=== PATIENT | male | born 1965 | race Caucasian/White ===

== ENCOUNTER 2024-06-02 14:28 | Emergency (ER) | payer OTHER ==
[2024-06-02] MEDS ORDERED: IBUPROFEN 200 MG TAB PO ONE (15:03)
[2024-06-02] MEDS ORDERED: HYDROCODONE/APAP 5/325 MG TAB ONE (15:03)
--- NOTE | 2024-06-02 16:12 | RAD REPORT ---
EXAM:Knee Right 3 View HISTORY: Pain;Swelling COMPARISON: None IMPRESSION: Status post constrained right knee arthroplasty. No fractures identified. No malalignment . No significant knee effusion.
--- NOTE | 2024-06-02 16:17 | ER ---
Nurse's Notes [facility] Name: Aayush [place] Age: 58 yrs Sex: Male : 1965 Arrival Date: 06/02/2024 Time: 14:28 Bed 15 Private MD: Diagnosis: Pain in right knee Presentation: 06/02 14:43 Chief complaint: Patient states: toned out [facility]; EMS reports pt. was leaning ar6 against his RV and was able to bare weight to right knee; pt. reports right knee pain. Coronavirus screen: Client denies travel out of the [place] in the last 14 days. At this time, the client does not indicate any symptoms associated with coronavirus-19. Ebola Screen: Patient negative for fever greater than or equal to 101.5 degrees Fahrenheit, and additional compatible Ebola Virus Disease symptoms Patient denies exposure to infectious person. Patient denies travel to an Ebola-affected area in the 21 days before illness onset. No symptoms or risks identified at this time. Initial Sepsis Screen: Does the patient meet any 2 criteria? No. Patient's initial sepsis screen is negative. Does the patient have a suspected source of infection? No. Patient's initial sepsis screen is negative. Risk Assessment: Do you want to hurt yourself or someone else? Patient reports no desire to harm self or others. Onset of symptoms was June 02, 2024. 14:43 Method Of Arrival: EMS: [facility] ar6 14:43 Acuity: JAMES 3 ar6 Triage Assessment: 14:47 General: Appears in no apparent distress. uncomfortable, Behavior is calm, cooperative, ar6 appropriate for age. Pain: Complains of pain in right leg Pain currently is 6 out of 10 on a pain scale. EENT: Oral mucosa is moist. Neuro: Level of Consciousness is awake, alert, obeys commands, Oriented to person, place, time, situation. Cardiovascular: Capillary refill < 3 seconds. Respiratory: Airway is patent. GI: Abdomen is round non-distended. : No signs and/or symptoms were reported regarding the genitourinary system. Derm: Skin is intact, is healthy with good turgor, Skin is dry. Musculoskeletal: Swelling right knee. Historical: - Allergies: 14:47 metformin; ar6 - Immunization history:: Adult Immunizations up to date. - Infectious Disease History:: Denies. - Social history:: Smoking status: Patient denies any tobacco usage or history of. Screenin:57 [facility] ED Fall Risk Assessment (Adult) History of falling in the last 3 months, ar6 including since admission No falls in past 3 months (0 pts) Confusion or Disorientation No (0 pts) Intoxicated or Sedated No (0 pts) Impaired Gait Yes (1 pt) Mobility Assist Device Used No (0 pt) Altered Elimination No (0 pt) Score/Fall Risk Level 0 - 2 = Low Risk Oriented to surroundings, Maintained a safe environment, Educated pt \T\ family on fall prevention, incl call for assistance when getting out of bed, Hourly rounding (assess needs \T\ fall precautionary measures) done. Abuse screen: Denies threats or abuse. Denies injuries from another. Nutritional screening: No deficits noted. Tuberculosis screening: No symptoms or risk factors identified. Assessment: 14:57 General: Appears in no apparent distress. uncomfortable, Behavior is calm, cooperative, ar6 appropriate for age. Pain: Complains of pain in right leg Pain currently is 6 out of 10 on a pain scale. Neuro: Level of Consciousness is awake, alert, obeys commands, Oriented to person, place, time, situation. Cardiovascular: Capillary refill < 3 seconds. Respiratory: Airway is patent. GI: Abdomen is round non-distended. : No signs and/or symptoms were reported regarding the genitourinary system. EENT: Oral mucosa is moist. Derm: Skin is intact, is healthy with good turgor, Skin is dry, Skin is pink, warm \T\ dry. Musculoskeletal: Swelling right knee. Vital Signs: 14:43 BP 127 / 76; Pulse 82; Resp 18; Temp 97.3; Pulse Ox 98% on R/A; Weight 90.72 kg; Height ar6 5 ft. 8 in. ; Pain 6/10; 14:55 BP 129 / 71; Pulse 84; Resp 18; Temp 97.3; Pulse Ox 98% on R/A; Weight 90.72 kg; Height ar6 5 ft. 8 in. ; Pain 6/10; 15:28 BP 131 / 73; Pulse 74; Resp 18; Pulse Ox 99% on R/A; ar6 16:39 BP 126 / 77; Pulse 77; Resp 18; Pulse Ox 99% on R/A; ar6 14:55 Body Mass Index 30.41 (90.72 kg, 172.72 cm) ar6 14:43 Pain Scale: Adult ar6 14:55 Pain Scale: Adult ar6 ED Course: 14:38 Patient arrived in ED. db 14:38 Lashell Field, RN is Primary Nurse. ar6 14:42 Edgardo Olmos, [facility] 14:42 Van Bejarano MD is Attending Physician. dr5 14:47 Triage completed. ar6 14:55 Arm band placed on right wrist. ar6 14:57 No apparent distress. Awaiting for x-ray. ar6 14:57 Patient has correct armband on for positive identification. Bed in low position. Call ar6 light in reach. Side rails up X 1. Provided Education on: plan of care. Pulse ox on. NIBP on. Door closed. Visitors limited. Lights dimmed. Moved to private room. Warm blanket given. Head of bed elevated. 14:57 No provider procedures requiring assistance completed. ar6 15:47 Knee Right 3 View XRAY In Process Unspecified. EDMS 16:40 IV discontinued, intact, bleeding controlled, No redness/swelling at site. Pressure ar6 dressing applied. Administered Medications: 15:06 Drug: HYDROcodone-acetaminophen PO 5 mg-325 mg 1 tabs PO once Route: PO; ar6 16:10 Follow up: Response: No adverse reaction ar6 16:22 Follow up: Response: No adverse reaction ar6 15:06 Drug: Ibuprofen PO 600 mg PO once Route: PO; ar6 16:09 Follow up: Response: No adverse reaction ar6 16:22 Follow up: Response: No adverse reaction ar6 Medication: 14:57 VIS not applicable for this client. ar6 Outcome: 16:17 Discharge ordered by . dr5 16:40 Discharged to home via wheelchair, ar6 16:40 Condition: good 16:40 Discharge instructions given to patient, Instructed on discharge instructions, follow up and referral plans. 16:40 Patient left the ED. ar6 Signatures: Dispatcher [employer] EDMS Maria M Hinkle RN RN db Roberts, Amber, RN RN ar6 Edgardo Olmos FNP-C REAL ESTATE SPECIALIST-Cdr5
--- NOTE | 2024-06-02 16:17 | EDPHYS ---
Physician Documentation [facility] Name: Aayush [place] Age: 58 yrs Sex: Male : 1965 Arrival Date: 06/02/2024 Time: 14:28 Bed 15 Private MD: ED Physician Van Bejarano HPI: 06/02 15:51 This 58 yrs old Male presents to ER via EMS with complaints of right knee dr5 pain. 15:51 Pt reports continued right knee pain for the past month and a half that worsened over dr5 the past three days.. 16:39 PT denies trauma, hitting right knee. Pt states the pain was sudden.. dr5 Historical: - Allergies: 14:47 metformin; ar6 - Immunization history:: Adult Immunizations up to date. - Infectious Disease History:: Denies. - Social history:: Smoking status: Patient denies any tobacco usage or history of. ROS: 15:51 Constitutional: as per hpi dr5 Exam: 15:51 Constitutional: This is a well developed, well nourished patient who is awake, alert, dr5 and in no acute distress. Head/Face: Normocephalic, atraumatic. Eyes: Pupils equal round and reactive to light, extra-ocular motions intact. Lids and lashes normal. Conjunctiva and sclera are non-icteric and not injected. Cornea within normal limits. Periorbital areas with no swelling, redness, or edema. Neck: Trachea midline, no thyromegaly or masses palpated, and no cervical lymphadenopathy. Supple, full range of motion without nuchal rigidity, or vertebral point tenderness. No Meningismus. Chest/axilla: Normal chest wall appearance and motion. Nontender with no deformity. No lesions are appreciated. Cardiovascular: Regular rate and rhythm with a normal S1 and S2. Normal PMI, no JVD. No pulse deficits. Respiratory: Lungs have equal breath sounds bilaterally, clear to auscultation. No rales, rhonchi or wheezes noted. No increased work of breathing, no retractions or nasal flaring. Abdomen/GI: Soft, non-tender, non-distended Neuro: Awake and alert, GCS 15, oriented to person, place, time, and situation. Cranial nerves II-XII grossly intact. Motor strength 5/5 in all extremities. Sensory grossly intact. Cerebellar exam normal. Normal gait. 15:51 Musculoskeletal/extremity: Extremities: all appear grossly normal, with no appreciated pain with palpation, grossly normal except: noted in the right knee medial: pain, tenderness, ROM: full passive range of motion, in the right knee, Circulation is intact in all extremities. Pulses: are normal with no appreciated deficits, Perfusion: the patient is normally perfused throughout, pink, noted to have brisk capillary refill, Perfusion: the extremity is normally perfused throughout, the right knee Sensation intact. Vital Signs: 14:43 BP 127 / 76; Pulse 82; Resp 18; Temp 97.3; Pulse Ox 98% on R/A; Weight 90.72 kg; Height ar6 5 ft. 8 in. ; Pain 6/10; 14:55 BP 129 / 71; Pulse 84; Resp 18; Temp 97.3; Pulse Ox 98% on R/A; Weight 90.72 kg; Height ar6 5 ft. 8 in. ; Pain 6/10; 15:28 BP 131 / 73; Pulse 74; Resp 18; Pulse Ox 99% on R/A; ar6 16:39 BP 126 / 77; Pulse 77; Resp 18; Pulse Ox 99% on R/A; ar6 14:55 Body Mass Index 30.41 (90.72 kg, 172.72 cm) ar6 14:43 Pain Scale: Adult ar6 14:55 Pain Scale: Adult ar6 Procedures: 16:36 Splinting: Splint applied to right knee using jhonny wrap, applied by nurse. Examined by dr5 me, post splint application: neurovascular intact, 2+ distal pulses palpable, brisk capillary refill noted, Patient tolerated well. MDM: 14:43 Patient medically screened. dr5 16:35 Differential Diagnosis Fracture, Strain, Sprain. Data reviewed: vital signs, nurses dr5 notes. Consideration of Admission/Observation Escalation of care including admission/observation considered. Considered admission if patient had septic joint or osteomyelitis.. I considered the following discharge prescriptions or medication management in the emergency department Antibiotics: At this time antibiotics are not recommended, Medications were administered in the Emergency Department. See MAR. 16:36 Care significantly affected by the following Social Determinants of Health: Poor access dr5 to healthcare and/or lack of insurance, Poor access to transportation. Counseling: I had a detailed discussion with the patient and/or guardian regarding the historical points, exam findings, and any diagnostic results supporting the discharge/admit diagnosis, the presence of at least one elevated blood pressure reading (>120/80) during this emergency department visit, radiology results, the need for outpatient follow up, for definitive care, a family practitioner, a orthopedic surgeon. Medication response: ibuprofen administration has resolved the patient's pain, [place]. Response to treatment: the patient's symptoms have resolved after treatment. ED course: Jhonny wrap applied to right knee for comfort. Recommended RICE. X-ray report didn't reveal a fracture. I printed out x-ray report for patient to take to his PCP for further management as indicated.. 06/02 14:59 Order name: Knee Right 3 View XRAY; Complete Time: 16:15 dr5 Administered Medications: 15:06 Drug: HYDROcodone-acetaminophen PO 5 mg-325 mg 1 tabs PO once Route: PO; ar6 16:10 Follow up: Response: No adverse reaction ar6 16:22 Follow up: Response: No adverse reaction ar6 15:06 Drug: Ibuprofen PO 600 mg PO once Route: PO; ar6 16:09 Follow up: Response: No adverse reaction ar6 16:22 Follow up: Response: No adverse reaction ar6 Disposition: 16:54 Co-signature as Attending Physician, Van Bejarano MD I reviewed the patient's care rt provided by the Advanced Practice Provider and agree with the diagnosis and treatment plan. Disposition Summary: 06/02/24 16:17 Discharge Ordered Notes: Location: Home dr5 Condition: Stable dr5 Diagnosis - Pain in right knee dr5 Followup: dr5 - With: Emergency Department - When: As needed - Reason: Worsening of condition Followup: dr5 - With: Private Physician - When: 2 - 3 days - Reason: Recheck today's complaints, Continuance of care, Re-evaluation by your physician Discharge Instructions: - Discharge Summary Sheet dr5 - Acute Knee Pain, Adult dr5 Forms: - Medication Reconciliation Form dr5 - Patient Portal Instructions dr5 - Leadership Thank You Letter dr5 Signatures: Dispatcher [employer] Van Qiu MD MD rt Lashell Field RN RN ar6 Edgardo Olmos, CERTIFIED WELLNESS PROGRAM COORDINATOR-C CERTIFIED WELLNESS PROGRAM COORDINATOR-Cdr5
[2024-06-02 16:50] VITALS: TEMP 97.3
[2024-06-02 16:57] VITALS: O2SAT 99
[2024-06-02 16:58] VITALS: BP 126/77
== END 2024-06-02 16:40 | disposition home or self-care (01) ==
LOC: ER 14:28
DX: M25.561 Pain in right knee (principal)
CPT/HCPCS: 99284

== ENCOUNTER 2024-11-06 20:55 | Emergency (ER) | payer OTHER ==
[2024-11-06 21:44] LABS: Absolute Basophils 0.1 K/uL (0-0.5); Absolute Eosinophils 0.1 K/uL (0-0.5); Absolute Lymphocytes (CBC) 1.9 K/uL (0.7-4.9); Absolute Monocytes 0.4 K/uL (0.1-1.3); Absolute Neutrophil 4.8 K/uL (1.8-8.0); Basophils % 1.1 % (0-1.3); Eosinophils % 1.7 % (0-4.4); Hematocrit 51.7 % (39.6-49.0); Hemoglobin 17.3 g/dL (13.6-17.9); Lymphocytes % 25.7 % (15.3-44.8); MCHC 33.4 g/dL (32.0-36.0); MCV 92.7 fL (80-100); MPV 8.1 fL (7.6-11.3); Neutrophils % 65.5 % (41.7-73.7); Nucleated Red Blood Cells % 0.1 % (0-0); Platelets 246 thou/uL (152-406); RBC Red Blood Cell Count 5.58 M/uL (4.33-5.43)
[2024-11-06 21:48] LABS: Specific Gravity 1.014 (1.005-1.030); Urine Bilirubin NEGATIVE (Negative); Urine Blood Negative (Negative); Urine Clarity Clear (Clear); Urine Color Colorless (Yellow); Urine Glucose 4+ (Over) (Negative); Urine Ketones NEGATIVE (Negative); Urine Microscopic Reflex YN NO UMIC; Urine Nitrite NEGATIVE (Negative); Urine Protein NEGATIVE (Negative); Urine Urobilinogen Normal (Normal)
[2024-11-06 21:55] LABS: Barbiturates NEGATIVE (NEGATIVE); Benzodiazepines NEGATIVE (NEGATIVE); Cocaine NEGATIVE (NEGATIVE); METHAMPHETAM NEGATIVE (NEGATIVE); Methadone NEGATIVE (NEGATIVE); Opiates NEGATIVE (NEGATIVE); Phencyclidine NEGATIVE (NEGATIVE); THC Cannibis NEGATIVE (NEGATIVE)
[2024-11-06 22:00] LABS: PTT, Activated Partial Thromb 31.5 SECONDS (27.2-37.4); Protime INR 0.87
[2024-11-06 22:05] LABS: ALT/SGPT 127 U/L (16-61); AST/SGOT 83 U/L (15-37); Albumin 3.8 g/dL (3.4-5.0); Alkaline Phosphatase 96 U/L (45-117); Anion Gap 10.9 mEq/L (5.0-15.0); BUN Blood Urea Nitrogen 8 mg/dL (7-18); Bicarbonate 21 mEq/L (21-32); Bilirubin Total 0.4 mg/dL (0.2-1.0); Glomerular Filtration Rate 106 ml/min (=/>90); Glucose Level 146 mg/dL (74-106); Potassium 3.9 mEq/L (3.5-5.1); Protein, Total 7.8 g/dL (6.4-8.2); Sodium Level 137 mEq/L (136-145)
[2024-11-06 22:14] LABS: Bilirubin Direct < 0.2 mg/dL (0-0.2); Bilirubin Indirect, Calculated 0.2 mg/dL (0.2-0.8)
--- NOTE | 2024-11-07 07:19 | ER ---
Nurse's Notes [facility] Name: Aayush Colorado Age: 58 yrs Sex: Male : 1965 Arrival Date: 11/06/2024 Time: 20:55 Bed 17 Private MD: Diagnosis: Alcohol abuse with intoxication;Worsening depressive disorder, suicidal ideation, homicidal ideation Presentation: 11/06 21:15 Chief complaint: EMS states: CALLED TO PATIENT'S HOME DUE TO PATIENT BEING HOMICIDAL. cm10 PT WAS ON THE PHONE AND STATED THAT HE WANTED TO KILL EVERYONE AND AND SHOT HIS PISTOL 3 TIMES. UPON ARRIVAL TO THE ER PATIENT DENYING SI/HI. PT STATES THAT HE DOES NOT KNOW WHY HE SHOT THE GUN EARLIER AND STATES, "I MUST HAVE BEEN HAVING AN EPISODE". WHEN ASKED IF HE WAS FEELING SUICIDAL PATIENT STATES, "WELL I SHOT MY GUN AND DON'T HAVE ANY GSW, SO NO." PT [facility] 21:15 Coronavirus screen: Client denies travel out of the [place] in the last 14 days. Ebola cm10 Screen: Patient denies travel to an Ebola-affected area in the 21 days before illness onset. Initial Sepsis Screen: Does the patient meet any 2 criteria? No. Patient's initial sepsis screen is negative. Does the patient have a suspected source of infection? No. Patient's initial sepsis screen is negative. Risk Assessment: Do you want to hurt yourself or someone else? Patient reports no desire to harm self or others. Onset of symptoms was November 06, 2024. 21:15 Acuity: JAMES 2 cm10 21:15 Method Of Arrival: EMS: [facility] cm10 Triage Assessment: 21:35 General: Appears in no apparent distress. comfortable, Behavior is calm, cooperative. cm10 Pain: Denies pain. Neuro: No deficits noted. Level of Consciousness is awake, alert, obeys commands, Oriented to person, place, time, situation, Appropriate for age. Respiratory: No deficits noted. Airway is patent Respiratory effort is even, unlabored, Respiratory pattern is regular, symmetrical. Historical: - Allergies: 21:11 metformin; cm10 - Home Meds: 21:30 Jardiance 25 mg oral tablet 1 tab daily [Active]; donepezil 10 mg oral tablet 1 tab cm10 every day at bedtime [Active]; duloxetine 30 mg oral capsule,delayed release (e.c.) 1 cap daily [Active]; lisinopril 20 mg Oral tablet 1 tab 2 times per day [Active]; atorvastatin 40 mg oral tablet 1 tab every evening [Active]; naproxen 250 mg Oral tablet 1 tab 2 times per day [Active]; baclofen 20 mg Oral tablet 1 tab 2 times per day [Active]; - PMHx: 21:11 Cerebrovascular accident; Left side defecits; PTSD; cm10 21:30 Hypertensive disorder; Hypercholesterolemia; Diabetes mellitus; cm10 - Immunization history:: Adult Immunizations unknown. - Infectious Disease History:: Denies. - Social history:: Smoking status: Patient denies any tobacco usage or history of. Patient uses alcohol, claims drinking about a 6 pack/day. - Family history:: not pertinent. Screenin:37 [facility] ED Fall Risk Assessment (Adult) History of falling in the last 3 months, cm10 including since admission No falls in past 3 months (0 pts) Confusion or Disorientation No (0 pts) Intoxicated or Sedated No (0 pts) Impaired Gait No (0 pts) Mobility Assist Device Used No (0 pt) Altered Elimination No (0 pt) Score/Fall Risk Level 0 - 2 = Low Risk Oriented to surroundings, Maintained a safe environment, Hourly rounding (assess needs \\T\\ fall precautionary measures) done. Abuse screen: Denies threats or abuse. Denies injuries from another. Nutritional screening: No deficits noted. Tuberculosis screening: No symptoms or risk factors identified. Assessment: 11/07 00:34 Reassessment: Patient appears in no apparent distress at this time. Patient and/or aa10 family updated on plan of care and expected duration. Pain level reassessed. Patient is alert, oriented x 3, equal unlabored respirations, skin warm/dry/pink. Patient is alert/active/playful, equal unlabored respirations, skin warm/dry/pink. Patient denies pain at this time. 00:34 Reassessment: sitter at bedside patient,environment ensured free and safe from hazard , aa10 bed in lowest position, will continue plan of care. 04:44 Reassessment: Patient appears in no apparent distress at this time. No changes from aa10 previously documented assessment. Patient and/or family updated on plan of care and expected duration. Pain level reassessed. Patient is alert, oriented x 3, equal unlabored respirations, skin warm/dry/pink. 06:34 Reassessment: Patient appears in no apparent distress at this time. No changes from aa10 previously documented assessment. Patient and/or family updated on plan of care and expected duration. Pain level reassessed. Patient is alert, oriented x 3, equal unlabored respirations, skin warm/dry/pink. Patient denies pain at this time. Patient states feeling better. 06:52 Reassessment: nurse to nurse report called to [facility], Nurse Debra. aa10 07:00 Reassessment: pt is awake, A\\T\\O x4, watching TV. pt denies SI or HI at this time. pt kc6 states that he vaguely remembers what happened last night and that "it was probably another one of my episodes. I haven't had one in over a year but they happen from time to time. I'm retired ex and did [place].". 08:00 Reassessment: Patient appears in no apparent distress at this time. No changes from kc6 previously documented assessment. Patient and/or family updated on plan of care and expected duration. Pain level reassessed. Patient is alert, oriented x 3, equal unlabored respirations, skin warm/dry/pink. 09:15 Reassessment: Patient appears in no apparent distress at this time. No changes from kc6 previously documented assessment. Patient and/or family updated on plan of care and expected duration. Pain level reassessed. Patient is alert, oriented x 3, equal unlabored respirations, skin warm/dry/pink. 10:15 Reassessment: Patient appears in no apparent distress at this time. No changes from kc6 previously documented assessment. Patient and/or family updated on plan of care and expected duration. Pain level reassessed. Patient is alert, oriented x 3, equal unlabored respirations, skin warm/dry/pink. Psych: 11/06 21:15 [place] Suicide Severity Screening: In the past month, have you wished you were cm10 or wished you could go to sleep and not wake up? Patient responds "No." "In the past month, have you actually had any thoughts of killing yourself?" Patient responds "no." "In your lifetime, have you ever done anything, started to do anything, or prepared to do anything to end your life?" Patient responds "no.". Subjective: Delusions are denied, Hallucinations are denied Having thoughts of homicide. PATIENT BROUGHT IN VIA LUCIA. PER LUCIA REPORT, PATIENT WAS STATING THAT HE WANTED TO SHOOT EVERYONE AND SHOT HIS PISTOL 3 TIMES. PATIENT CURRENTLY DENIES HI. 21:15 Objective: Patient is cooperative, Speech is normal, Affect is appropriate. cm10 Interventions: Removed personal items and placed in bag. Belonging list filled out. Safety Checks: Personal items have been removed. Door is open. No visitors are present at this time. Patient uses 6 pack of beer, daily. Commitment: Patient will be an involuntary commitment. Vital Signs: 21:38 Weight 91.85 kg; Height 5 ft. 8 in. ; cm10 21:49 BP 110 / 68; Pulse 72; Resp 18; Temp 97(O); Pulse Ox 93% on R/A; oe 03/ 07:00 BP 112 / 64; Pulse 75; Resp 18 S; Temp 98.3(TE); Pulse Ox 95% on R/A; Pain 0/10; kc6 10:15 BP 134 / 88; Pulse 88; Resp 18 S; Temp 98.2(TE); Pulse Ox 97% on R/A; Pain 0/10; kc6 0311 21:38 Body Mass Index 30.79 (91.85 kg, 172.72 cm) cm10 03/ 07:00 Pain Scale: Adult kc6 10:15 Pain Scale: Adult kc6 Marissa Coma Score: 07:15 Eye Response: spontaneous(4). Motor Response: obeys commands(6). Verbal Response: sp4 oriented(5). Total: 15. ED Course: 11/06 21:01 Patient arrived in ED. rv1 21:04 Julien Lynn MD is Attending Physician. sp4 21:07 Yasemin Vargas, SHELLY is Primary Nurse. cm10 21:13 Triage completed. cm10 21:34 Arm band placed on right wrist. Patient placed in an exam room, on a stretcher. cm10 21:37 Patient has correct armband on for positive identification. cm10 21:40 Inserted saline lock: 22 gauge in right forearm, using aseptic technique. Blood oe collected. Flushed with 10 mL NS. 21:51 EKG done, by ED staff, reviewed by Julien Lynn MD. oe 21:56 Acetaminophen Sent. oe 21:56 Basic Metabolic Panel Sent. oe 21:56 ETOH Level Sent. oe 21:56 Hepatic Function Sent. oe 21:57 PT-INR Sent. oe 21:57 Ptt, Activated Sent. oe 21:57 Salicylate Sent. oe 03 00:34 No provider procedures requiring assistance completed. aa10 06:30 Faxed pt clinicals to following facilities for placement; [address] 07:00 Safety Checks: Personal items have been removed. The door is open or patient has been kc6 placed in a hallway bed/chair. There are no family/friend visitors at this time Sitter present at this time. 07:00 Patient has correct armband on for positive identification. Bed in low position. Side kc6 rails up X2. Valuables inventory done. Locked in safe. See valuables checklist. Door closed. Noise minimized. Visitors limited. Lights dimmed. Moved to private room. Warm blanket given. Pillow given. Verbal reassurance given. Patient is placed in psych hold. 07:00 Report received from SHELLY Carnes. kc6 07:00 Patient maintains SpO2 saturation greater than 95% on room air. kc6 07:21 Assisted to bathroom. kc6 07:46 Attending Physician role handed off by Julien Lynn MD rn 07:46 Stephen Armstrong MD is Attending Physician. rn 09:15 Diet: Patient given a regular meal tray. Tolerated well. kc6 10:15 Provided Education on: need for transfer. kc6 10:15 IV discontinued, intact, bleeding controlled, No redness/swelling at site. Pressure kc6 dressing applied. Administered Medications: No medications were administered Medication: 11/06 21:37 VIS not applicable for this client. cm10 Outcome: 11/07 07:19 ER care complete, transfer ordered by . sp4 10:15 Transferred Transfer form completed. Note: [facility] 10:15 Condition: good 10:15 Instructed on the need for transfer, 10:26 Patient left the ED. kc6 Signatures: Stephen Armstrong MD MD rn Espinosa, [place] oe Campbell, Kaitlyn, RN RN kc6 Tessy Pantoja rv1 Julien Lynn MD MD sp4 Yasemin Vargas RN RN cm10 Flower Mcdonnell, SHELLY RN aa10 Corrections: (The following items were deleted from the chart) 11/06 21:27 21:13 Risk Assessment: Do you want to hurt yourself or someone else? Patient reports cm10 desire/thoughts of hurting themselves or someone else. Provider notified. cm10 21:13 Risk Assessment: Do you want to hurt yourself or someone else? Patient reports no cm10 desire to harm self or others. cm10 21:13 Acuity: JAMES 2 cm10 cm10 21:25 Chief complaint: EMS states: CALLED TO PATIENT'S HOME DUE TO PATIENT BEING cm10 HOMICIDAL. PT WAS ON THE PHONE AND STATED THAT HE WANTED TO KILL EVERYONE AND AND SHOT HIS PISTOL 3 TIMES. UPON ARRIVAL TO THE ER PATIENT DENYING SI/HI. PT STATES THAT HE DOES NOT KNOW WHY HE SHOT THE GUN EARLIER AND STATES, "I MUST HAVE BEEN HAVING AN EPISODE". WHEN ASKED IF HE WAS FEELING SUICIDAL PATIENT STATES, "WELL I SHOT MY GUN AND DON'T HAVE ANY GSW, SO NO." PT ARRIVED WITH AN LUCIA IN PLACE BY [facility]. 10 11/07 09:17 07:00 Reassessment: pt is awake, A\\T\\O x4, watching TV. [facility] 10:24 10:24 BP 134 / 88; Pulse 88bpm; Resp 18bpm; Spontaneous; Pulse Ox 97% RA; Temp 98.2F kc6 Temporal; Pain 0/10, Adult; 6 10: 10:24 Condition: good [place] [id number] 10: 10:24 Transferred Transfer form completed. Note: [place] [facility] [place] [facility] : 10:24 Instructed on the need for transfer, [place] [id number]
--- NOTE | 2024-11-07 07:19 | EDPHYS ---
Physician Documentation [facility] Name: Aayush Colorado Age: 58 yrs Sex: Male : 1965 Arrival Date: 11/06/2024 Time: 20:55 Bed 17 Private MD: ED Physician Stephen Armstrong HPI: 11/06 21:04 This 58 yrs old Male presents to ER via Unassigned with complaints of sp4 homicidal ideation . 11/07 07:15 This is 58-year-old male with history of CVA, PTSD, of [employer], history of sp4 hypertensive disorder, hypercholesterolemia and diabetes. Also history of dementia on donepezil. Patient presents with acute homicidal and suicidal ideation. Patient brought in with police escort with LUCIA. LUCIA states patient has threatened to shoot himself in the head. LUCIA also states patient has threatened to kill anybody who can come close to him. Patient is in possession of multiple firearms at home.. Historical: - Allergies: 11/06 21:11 metformin; cm10 - Home Meds: 21:30 Jardiance 25 mg oral tablet 1 tab daily [Active]; donepezil 10 mg oral tablet 1 tab cm10 every day at bedtime [Active]; duloxetine 30 mg oral capsule,delayed release (e.c.) 1 cap daily [Active]; lisinopril 20 mg Oral tablet 1 tab 2 times per day [Active]; atorvastatin 40 mg oral tablet 1 tab every evening [Active]; naproxen 250 mg Oral tablet 1 tab 2 times per day [Active]; baclofen 20 mg Oral tablet 1 tab 2 times per day [Active]; - PMHx: 21:11 Cerebrovascular accident; Left side defecits; PTSD; cm10 21:30 Hypertensive disorder; Hypercholesterolemia; Diabetes mellitus; cm10 - Immunization history:: Adult Immunizations unknown. - Infectious Disease History:: Denies. - Social history:: Smoking status: Patient denies any tobacco usage or history of. Patient uses alcohol, claims drinking about a 6 pack/day. - Family history:: not pertinent. ROS: 11/07 07:15 Constitutional: Negative for fever, chills, and weight loss, positive for suicidal sp4 and homicidal ideation, positive for anxiety and depression. All other systems are negative, Exam: 07:15 Constitutional: This is a well developed, well nourished patient who is awake, alert, sp4 and in no acute distress. Head/Face: Normocephalic, atraumatic. Eyes: Pupils equal round and reactive to light, extra-ocular motions intact. Lids and lashes normal. Conjunctiva and sclera are not injected. Cornea within normal limits. Periorbital areas with no swelling, redness, or edema. ENT: Nares patent. No nasal discharge, no septal abnormalities noted. Tympanic membranes are normal and external auditory canals are clear. Oropharynx with no redness, swelling, or masses, exudates, or evidence of obstruction, uvula midline. Mucous membranes moist. Neck: Trachea midline, no thyromegaly or masses palpated, and no cervical lymphadenopathy. Supple, full range of motion without nuchal rigidity, or vertebral point tenderness. Chest/axilla: Normal chest wall appearance and motion. Nontender with no deformity. No lesions are appreciated. Cardiovascular: Regular rate and rhythm with a normal S1 and S2. No gallops, murmurs, or rubs. Normal PMI, no JVD. No pulse deficits. Respiratory: Lungs have equal breath sounds bilaterally, clear to auscultation and percussion. No rales, rhonchi or wheezes noted. No increased work of breathing, no retractions or nasal flaring. Abdomen/GI: Soft, with normal bowel sounds. No distension or tympany. No guarding or rebound. No evidence of tenderness throughout. Back: No spinal tenderness. No costovertebral tenderness. Skin: Warm, dry with normal turgor. Normal color with no rashes, no lesions, and no evidence of cellulitis. MS/ Extremity: Pulses equal, no cyanosis. Neurovascular intact. Full, normal range of motion. Neuro: Awake and alert, GCS 15, oriented to person, place, time, and situation. Cranial nerves II-XII grossly intact. Motor strength 5/5 in all extremities. Sensory grossly intact. Psych: Awake, alert, with orientation to person, place and time. Behavior, mood, and affect are within normal limits 07:31 ECG was reviewed by the Attending Physician. EKG 2139 normal sinus rhythm rate 75. sp4 Vital Signs: 11/06 21:38 Weight 91.85 kg; Height 5 ft. 8 in. ; cm10 21:49 BP 110 / 68; Pulse 72; Resp 18; Temp 97(O); Pulse Ox 93% on R/A; oe 11/07 07:00 BP 112 / 64; Pulse 75; Resp 18 S; Temp 98.3(TE); Pulse Ox 95% on R/A; Pain 0/10; kc6 10:15 BP 134 / 88; Pulse 88; Resp 18 S; Temp 98.2(TE); Pulse Ox 97% on R/A; Pain 0/10; kc6 11/06 21:38 Body Mass Index 30.79 (91.85 kg, 172.72 cm) cm10 11/07 07:00 Pain Scale: Adult kc6 10:15 Pain Scale: Adult kc6 Rydal Coma Score: 07:15 Eye Response: spontaneous(4). Motor Response: obeys commands(6). Verbal Response: sp4 oriented(5). Total: 15. MDM: 11/06 21:05 Medical Screening Exam initiated sp4 11/07 07:17 Differential diagnosis: drug withdrawal. acute psychotic break, depression, psychosis sp4 secondary to non-compliance. Data reviewed: vital signs, nurses notes, EMS record, old medical records, lab test result(s), EKG. Consideration of Admission/Observation Escalation of care including admission/observation considered. Transition of care: After a detail discussion of the patient's case, care is transferred to Stephen Armstrong MD. ED course: Patient was informed that transfer is warranted for psychiatric assessment.. Patient is under LUCIA.. 07:46 ED course: Pt signed out to me by Dr. Lynn, pending psychiatric transfer for rn suicidal ideation. Vitals stable, no acute distress. . 09:52 ED course: Patient accepted for transfer to [facility]. rn 11/06 21:06 Order name: Acetaminophen; Complete Time: 02: sp4 11/06 21:06 Order name: Basic Metabolic Panel; Complete Time: : sp4 11/06 21:06 Order name: CBC with Diff; Complete Time: 02: sp4 11/06 21:06 Order name: ETOH Level; Complete Time: 02:27 sp4 11/06 21:06 Order name: Hepatic Function; Complete Time: 02: sp4 11/06 21:06 Order name: PT-INR; Complete Time: 02: sp4 11/06 21:06 Order name: Ptt, Activated; Complete Time: 02:27 sp4 11/06 21:06 Order name: Salicylate; Complete Time: 02:27 sp4 11/06 21:06 Order name: Urinalysis w/ reflexes; Complete Time: 02:27 sp4 11/06 21:06 Order name: Urine Drug Screen; Complete Time: 02:27 sp4 11/07 02:28 Order name: Alcohol Level; Complete Time: 07:08 sp4 11/07 09:30 Order name: Glucose, Ancillary Testing [facility] 11/06 21:06 Order name: EKG; Complete Time: 21:07 sp4 11/06 21:06 Order name: EKG - Nurse/Tech; Complete Time: 21:56 sp4 11/06 21:06 Order name: IV Saline Lock; Complete Time: 21:38 sp4 11/06 21:06 Order name: Labs collected and sent; Complete Time: 21:38 sp4 11/06 21:06 Order name: Suicide Precautions; Complete Time: 21:38 sp4 11/06 21:06 Order name: Suicide Screening ([place]); Complete Time: 21:38 sp4 EC/11 21:39 Rate is 75 beats/min. Rhythm is regular, Normal Sinus Rhythm. QRS [place] is Normal. MA sp4 interval is normal. QRS interval is normal. QT interval is normal. No Q waves. T waves are Normal. No ST changes noted. Clinical impression: No evidence of ischemia. Interpreted by me. Reviewed by me. Administered Medications: No medications were administered Disposition Summary: 11/07/24 07:19 Transfer Ordered Notes: Transfer Location: Psych Facility sp4 Reason: Higher level of care sp4 Condition: Stable sp4 Problem: new sp4 Symptoms: have improved sp4 Accepting Physician: Attending psychiatrist(11/07/24 10:26) kc6 Diagnosis - Alcohol abuse with intoxication sp4 - Worsening depressive disorder, suicidal ideation, homicidal ideation sp4 Discharge Instructions: - Discharge Summary Sheet rv1 Forms: - SBAR form rv1 - Medication Reconciliation Form sp4 Signatures: Dispatcher [employer] EDMS Stephen Armstrong MD MD rn Campbell, Kaitlyn, RN RN kc6 Julien Lynn MD MD sp4 Yasemin Vargas RN RN cm10 Corrections: (The following items were deleted from the chart) 21: 21:07 ACETAMINOPHEN+C.LAB.BRZ ordered. EDMS EDMS 21: 21:07 BASIC METABOLIC PANEL+C.LAB.BRZ ordered. EDMS EDMS 21: 21:07 CBC+H.LAB.BRZ ordered. EDMS EDMS : 21:07 ETHANOL+C.LAB.BRZ ordered. EDMS EDMS : 21:07 HEPATIC FUNCTION+C.LAB.BRZ ordered. EDMS EDMS : 21:07 PROTIME (+INR)+COAG.LAB.BRZ ordered. EDMS EDMS : 21:07 PTT, ACTIVATED+COAG.LAB.BRZ ordered. EDMS EDMS : 21:07 SALICYLATE+C.LAB.BRZ ordered. EDMS EDMS : 21:07 Urinalysis+U.LAB.BRZ ordered. EDMS EDMS : 21:07 URINE DRUG SCREEN+UC.LAB.BRZ ordered. EDMS EDMS 11/07 10:26 07:19 Attending psychiatrist sp4 kc6
[2024-11-07 10:45] VITALS: BP 134/88; TEMP 98.2; O2SAT 97
--- NOTE | 2024-11-09 14:50 | EKG ---
Test Date: 2024-11-06 Test Time: 21:39:05 Cutter Brake Lining: TG MEASUREMENT RESULTS: Intervals: Rate: 75 CO: 200 QRSD: 98 QT: 378 QTc: 422 [place]: P: 47 CO: 200 QRS: 17 T: 41 INTERPRETIVE STATEMENTS: Normal sinus rhythm Incomplete right bundle branch block Borderline ECG No previous ECG available for comparison Electronically Signed On 11-09-24 14:43:15 CDT by Nixon Cline
== END 2024-11-07 10:26 ==
LOC: ER 20:55
DX: R45.851 Suicidal ideations (principal); R45.850 Homicidal ideations; F10.129 Alcohol abuse with intoxication, unspecified; F32.A Depression, unspecified; F43.10 Post-traumatic stress disorder, unspecified
CPT/HCPCS: 36415; 80048; 80076; 80143; 80179; 80307; 81003; 82077; 82947; 85025; 85610; 85730; 93005; 99285